=== PATIENT | male | born 1985 | race African-American/Black ===

== ENCOUNTER 2019-02-13 14:33 | Emergency (ER) | payer SELFPAY ==
[~2019-02-13] VITALS: Ht 177.8 cm; Wt 77.1 kg
--- NOTE | 2019-02-13 15:30 | NUR ---
Pt refusing any medical intervention at this time "I just want somewhere to stay". "I dont want that sandwich I want fresh food."
--- NOTE | 2019-02-13 16:06 | NUR ---
Patient discharged to home in stable condition. Written and verbal after care instructions given. Patient verbalizes understanding of instruction.
[2019-02-13 16:07] VITALS: BP 110/60
== END 2019-02-13 16:08 | disposition home or self-care (01) ==
LOC: ER 14:39
DX: Z00.8 Encounter for other general examination (principal)